=== PATIENT | male | born 1995 | race African-American/Black ===

== ENCOUNTER 2016-09-08 19:56 | Emergency (ER) | payer MEDICAID ==
[~2016-09-08] VITALS: Ht 172.7 cm; Wt 61.7 kg
[2016-09-08 20:16] VITALS: BP 127/82
[2016-09-08] MEDS ORDERED: ADULT WAL-100 MG/5 M ORAL (20:28)
[2016-09-08 20:35] VITALS: BP 127/82
--- NOTE | 2016-09-08 23:35 | Emergency Room Report ---
History of Present Illness General Chief Complaint: Upper Respiratory Illness Source: Patient Present Illness HPI Patient is a 21-year-old male who presented after increased cough. Patient gradual onset of symptoms over the past 2 weeks. Patient having a nonproductive cough which I reportedly had been bothersome. Patient stated that he is not having any fever. Patient denied any leg pain or swelling. The patient was taking ibuprofen [id number] he was noted to have some soreness of his throat. Allergies: Coded Allergies: No Known Allergies (Unverified , 03/19/13) Patient History Past Medical History: see triage record Reviewed Nursing Documentation: PMH: Agreed, PSxH: Agreed Nursing Documentation-PM Past Medical History: No Stated History Review of Systems All Other Systems: negative except mentioned in HPI Physical Exam Vital Signs Date Time Temp Pulse Resp B/P Pulse Ox O2 Delivery O2 Flow Rate FiO2 09/08/16 20:12 97.5 80 14 127/82 99 Room Air General Appearance: well appearing, no apparent distress, alert, GCS 15 Head: normocephalic, atraumatic ENT: hearing grossly normal, normal voice, other - mild pharyngeal erythema Neck: full range of motion, supple Respiratory: lungs clear, normal breath sounds, no rhonchi, no respiratory distress, speaking full sentences Gastrointestinal: normal inspection, normal bowel sounds, non tender, soft, no mass Musculoskeletal: normal inspection, no calf tenderness Neurologic: normal inspection, alert, oriented x3, responsive, casualty underwriter III-XII nml as tested, normal gait Psychiatric: mood/affect normal Skin: no rash Medical Decision Making Diagnostic Impression: Primary Impression: Upper respiratory infection ER Course Patient presented for cough. Differential diagnosis included but was not limited to bronchitis, upper respiratory infection , pneumonia, pulmonary embolism, pericarditis, asthma, foreign body. Patient's benign exam and does not appear to require any further imaging or laboratory testing at this time. The patient was noted to have an unremarkable exam and had no coughing during the time that he was present emergency department.The patient does not appear to have respecter for pulmonary embolism. He appears to be somewhat intent on obtaining cough syrup. He was given prescription for guaifenesin. The patient is advised to follow up with primary care doctor in 1-2 days. Patient is advised to return if any worsening condition or if any changes in status that are concerning. Last Vital Signs Date Time Temp Pulse Resp B/P Pulse Ox O2 Delivery O2 Flow Rate FiO2 09/08/16 20:35 97.5 80 14 127/82 99 Room Air Status: unchanged Disposition: HOME, SELF-CARE Condition: Stable Scripts Guaifenesin* (ADULT WAL-TUSSIN*) 100 Mg/5 Ml Liquid 10 ML ORAL Q4H, #120 ML Prov: Dom Alberto 09/08/16 Referrals: NON PHYSICIAN (PCP) Patient Instructions: Upper Respiratory Infection, Adult Dom Alberto Sep 08, 2016 23:35
[2016-09-24] MEDS ORDERED: PROMETHAZINE-C118 M1 ORAL (20:08)
[2016-09-24] MEDS ORDERED: ALBUTEROL SULF8.5 GM INH (20:08)
== END 2016-09-08 20:35 | disposition home or self-care (01) ==
LOC: EMR 20:25
DX: J06.9 Acute upper respiratory infection, unspecified (principal)
CPT/HCPCS: 99283

== ENCOUNTER → 2016-09-24 | Emergency (ER) | payer MEDICAID ==
[~2016-09-24] VITALS: Ht 172.7 cm; Wt 61.2 kg
[~2016-09-24] MED LIST: ADULT WAL-100 MG/5 M ORAL; ALBUTEROL SULF8.5 GM INH; IBUPROFEN400 MG ORAL; NEXAFED30 MG ORAL; PROMETHAZINE-C118 M1 ORAL; PROMETHAZINE-D118 ML ORAL; TESSALON PERLE100 MG ORAL
[2016-09-24 19:29] VITALS: BP 112/68
--- NOTE | 2016-09-24 20:08 | Emergency Room Report ---
History of Present Illness General Chief Complaint: Upper Respiratory Illness Source: Patient Present Illness HPI 21-year-old male presents to emergency Department complaining of a dry nonproductive cough for over 2 weeks. Patient states he was seen here in the emergency department and was prescribed Robitussin which provided no relief. Patient denies fevers or chills patient denies nasal congestion or rhinorrhea. Patient reports history of asthma and states that at times he's noticed some wheezing after coughing. denies neck pain or stiffness. The patient denies significant shortness of breath. Patient denies recent travel, ill contacts or history of DVT or claudication . Denies CP, Palpitations, LOC, AMS, dizziness, Changes in Vision, Sensation, paresthesias, or a sudden severe headache. Allergies: Coded Allergies: No Known Allergies (Unverified , 03/19/13) Patient History Past Medical History: see triage record Past Surgical History: none Pertinent Family History: none Immunizations: UTD Reviewed Nursing Documentation: PMH: Agreed, PSxH: Agreed Nursing Documentation-PMH Past Medical History: No History, Except For Hx Asthma: Yes Review of Systems All Other Systems: negative except mentioned in HPI Physical Exam Vital Signs Date Time Temp Pulse Resp B/P Pulse Ox O2 Delivery O2 Flow Rate FiO2 09/24/16 19:25 98.4 99 16 112/68 99 Room Air Sp02 EP Interpretation: reviewed, normal General Appearance: no apparent distress, alert, GCS 15, non-toxic Head: normocephalic, atraumatic Eyes: bilateral eye PERRL, bilateral eye normal inspection ENT: hearing grossly normal, normal pharynx, no angioedema, normal voice Neck: full range of motion, no meningismus, no bony tend, supple/symm/no masses Respiratory: chest non-tender, lungs clear, normal breath sounds, no rhonchi, no accessory muscle use, no wheezing, speaking full sentences Cardiovascular #1: regular rate, rhythm, no edema Rectal: deferred Musculoskeletal: back normal, gait/station normal, normal range of motion, non- tender, no calf tenderness Neurologic: alert, oriented x3, responsive, motor strength/tone normal, sensory intact, speech normal Psychiatric: judgement/insight normal, memory normal, mood/affect normal, no suicidal/homicidal ideation Skin: normal color, no rash, warm/dry, well hydrated Lymphatic: no adenopathy Medical Decision Making PA Attestation Dr. Evans is my supervising Physician whom patient management has been discussed with. Diagnostic Impression: Primary Impression: Bronchitis, acute Qualified Codes: J20.9 - Acute bronchitis, unspecified Additional Impression: History of asthma ER Course 21-year-old male presents to emergency Department complaining of a dry nonproductive cough for over 2 weeks. Patient states he was seen here in the emergency department and was prescribed Robitussin which provided no relief. Patient denies fevers or chills patient denies nasal congestion or rhinorrhea. Patient reports history of asthma and states that at times he's noticed some wheezing after coughing. . Ddx considered but are not limited to URI, pneumonia, PE, strep pharyngitis, meningitis. Vital signs: Pt.is afebrile VS are WNL, pt non-toxic, NAD. H&PE are most consistent with bronchitis, most likely of viral in etiology, no fevers, not suspicious for atypical pneumonia at this time. dry non-productive cough in pt. with hx of asthma. ORDERS: none required at this time, the diagnosis is clinical ED INTERVENTIONS: None required at this time. DISCHARGE: At this time pt. is stable for d/c to home. Will provide printed patient care instructions, and any necessary prescriptions. Care plan and follow up instructions have been discussed with the patient prior to discharge. Last Vital Signs Date Time Temp Pulse Resp B/P Pulse Ox O2 Delivery O2 Flow Rate FiO2 09/24/16 19:29 99 16 Room Air 09/24/16 19:29 98.4 112/68 99 Disposition: HOME, SELF-CARE Condition: Stable Patient Instructions: Acute Bronchitis, [id number] Additional Instructions: Take medications as directed. Follow up with PCP in 3-5 days Return sooner to ED if new symptoms occur, or current symptoms become worse. Do not drink alcohol, drive, or operate heavy machinery while taking Cough Syrup as this may cause drowsiness. - Please note that this Emergency Department Report was dictated using [employer] seat sander technology software, occasionally this can lead to erroneous entry secondary to interpretation by the dictation equipment. Estefanía Fernandez Sep 24, 2016 20:08
[2016-09-24 20:13] VITALS: BP 112/68
== END | disposition home or self-care (01) ==
LOC: EMR 19:54
DX: J20.9 Acute bronchitis, unspecified (principal); Z87.09 Personal history of other diseases of the respiratory system
CPT/HCPCS: 99281

== ENCOUNTER 2016-10-02 13:53 | Emergency (ER) | payer MEDICAID ==
[~2016-10-02] VITALS: Ht 172.7 cm; Wt 61.2 kg
[~2016-10-02 13:53] MED LIST changes: -IBUPROFEN400 MG ORAL; -NEXAFED30 MG ORAL; -PROMETHAZINE-D118 ML ORAL; -TESSALON PERLE100 MG ORAL
[2016-10-02 14:22] VITALS: BP 121/75
--- NOTE | 2016-10-02 15:23 | Emergency Room Report ---
History of Present Illness General Chief Complaint: Upper Respiratory Illness Source: Patient Present Illness HPI 21-year-old male presents emergency department complaining of persistent cough x2 months unresponsive to conservative treatment, and antibiotic treatment. Patient was seen here in the emergency department 2 previous visits. Patient also was prescribed inhaler for which has a history of asthma denies wheezing. he reports nasal congestion and rhinorrhea and persistent dry cough. he states that he has not followed up with his doctor despite previous discharge instructions stating followup in 3-5 days. he denies fevers or chills patient denies ill contacts or recent travel patient reports intermittent bilateral upper back pain 5/10 in severity with coughing. Denies CP, Palpitations, LOC, AMS, dizziness, Changes in Vision, Sensation, paresthesias, or a sudden severe headache. Allergies: Coded Allergies: No Known Allergies (Unverified , 03/19/13) Patient History Past Medical History: see triage record Past Surgical History: none Pertinent Family History: none Immunizations: UTD Reviewed Nursing Documentation: PMH: Agreed, PSxH: Agreed Nursing Documentation-PMH Past Medical History: No History, Except For Hx Asthma: Yes Review of Systems All Other Systems: negative except mentioned in HPI Physical Exam Vital Signs Date Time Temp Pulse Resp B/P Pulse Ox O2 Delivery O2 Flow Rate FiO2 10/02/16 14:22 98.1 71 16 121/75 98 Room Air Sp02 EP Interpretation: reviewed, normal General Appearance: no apparent distress, alert, GCS 15, non-toxic Head: normocephalic, atraumatic Eyes: bilateral eye PERRL, bilateral eye normal inspection ENT: hearing grossly normal, normal pharynx, no angioedema, normal voice, TMs + canals normal, uvula midline, moist mucus membranes Neck: full range of motion, supple/symm/no masses Respiratory: chest non-tender, lungs clear, normal breath sounds, speaking full sentences Cardiovascular #1: regular rate, rhythm, no edema Cardiovascular #2: 2+ carotid (R), 2+ carotid (L), 2+ radial (R), 2+ radial (L) , 2+ dorsalis pedis (R), 2+ dorsalis pedis (L) Gastrointestinal: normal bowel sounds, non tender, soft, no guarding, no rebound Rectal: deferred Genitourinary: normal inspection, no CVA tenderness Musculoskeletal: back normal, gait/station normal, normal range of motion, non- tender, no calf tenderness Neurologic: alert, oriented x3, responsive, motor strength/tone normal, sensory intact, speech normal Psychiatric: judgement/insight normal, memory normal, mood/affect normal, no suicidal/homicidal ideation Reflexes: 4+ bicep (R), 4+ bicep (L), 4+ tricep (R), 4+ tricep (L), 4+ knee (R) , 4+ knee (L) Skin: normal color, no rash, warm/dry, well hydrated Lymphatic: no adenopathy Medical Decision Making PA Attestation Dr. Bermudez is my supervising Physician whom patient management has been discussed with. Diagnostic Impression: Primary Impression: Persistent cough for 3 weeks or longer ER Course 21-year-old male presents emergency department complaining of persistent cough x2 months unresponsive to conservative treatment, and antibiotic treatment. Patient was seen here in the emergency department 2 previous visits. Patient also was prescribed inhaler for which has a history of asthma denies wheezing. he reports nasal congestion and rhinorrhea and persistent dry cough. he states that he has not followed up with his doctor despite previous discharge instructions stating followup in 3-5 days. he denies fevers or chills patient denies ill contacts or recent travel patient reports intermittent bilateral upper back pain 5/10 in severity with coughing. Ddx considered but are not limited to URI, pneumonia, PE, strep pharyngitis, meningitis. Vital signs: Pt. is afebrile, the remaining VS are WNL H&PE are most consistent with URI- no meningeal signs, oropharynx is not involved, no evidence of bacterial infection at this time. pt. has finished both Z-pack and conservative treatment, lungs are CTA bilaterally. ORDERS: none required at this time, the diagnosis is clinical ED INTERVENTIONS: None required at this time. --PT. EDUCATION: Discussed antibiotic resistance with inappropriate prescribing of antibiotics for viral illnesses. Discussed signs and symptoms to indicate viral illness versus bacterial illness. also d/w pt. appropriate follow up with PCP, and may require back tender insulation board evaluation. pt. is stable for outpatient evaluation and treatment. DISCHARGE: At this time pt. is stable for d/c to home. Will provide printed patient care instructions, and any necessary prescriptions. Care plan and follow up instructions have been discussed with the patient prior to discharge. Last Vital Signs Date Time Temp Pulse Resp B/P Pulse Ox O2 Delivery O2 Flow Rate FiO2 10/02/16 14:26 71 16 Room Air 10/02/16 14:22 98.1 121/75 98 Disposition: HOME, SELF-CARE Scripts Ibuprofen* (MOTRIN*) 400 Mg Tablet 400 MG ORAL THREE TIMES A DAY, #30 TAB 0 Refills Prov: Estefanía Fernandez 10/02/16 Pseudoephedrine Hcl* (NEXAFED*) 30 Mg Tablet 30 MG ORAL Q6H Y for congestion for 5 Days, #20 TAB Prov: Estefanía FernandezAJuan Daniel 10/02/16 D-Methorphan Hb/Prometh Hcl* (PROMETHAZINE-DM SYRUP*) 118 Ml Syrup 5 ML ORAL Q6H Y for For Cough, #118 ML 0 Refills Prov: Estefanaí Fernandez 10/02/16 Benzonatate* (TESSALON PERLE*) 100 Mg Capsule 100 MG ORAL THREE TIMES A DAY for 7 Days, #21 PERLE Prov: Estefanía Fernandez 10/02/16 Referrals: NON PHYSICIAN (PCP) Patient Instructions: Cough, Adult, [id number] Additional Instructions: Take medications as directed. !! Follow up with PCP in 3-5 days , May require [employer] evaluation for persistent cough despite treatment with antibiotics and conservative medications. Return sooner to ED if new symptoms occur, or current symptoms become worse. - Please note that this Emergency Department Report was dictated using [employer] service professional technology software, occasionally this can lead to erroneous entry secondary to interpretation by the dictation equipment. Estefanía Fernandez Oct 02, 2016 15:23
[2016-10-02] MEDS ORDERED: IBUPROFEN400 MG ORAL (15:25)
[2016-10-02] MEDS ORDERED: PROMETHAZINE-D118 ML ORAL (15:25)
[2016-10-02] MEDS ORDERED: TESSALON PERLE100 MG ORAL (15:25)
[2016-10-02] MEDS ORDERED: NEXAFED30 MG ORAL (15:25)
[2016-10-02 15:54] VITALS: BP 127/76
== END 2016-10-02 15:55 | disposition home or self-care (01) ==
LOC: EMR 14:46
DX: R05 Cough (principal); J45.909 Unspecified asthma, uncomplicated
CPT/HCPCS: 99284

== ENCOUNTER 2016-12-09 17:23 | Emergency (ER) | payer MEDICAID ==
[~2016-12-09] VITALS: Ht 172.7 cm; Wt 63.5 kg
[~2016-12-09 17:23] MED LIST changes: +IBUPROFEN400 MG ORAL; +NEXAFED30 MG ORAL; +PROMETHAZINE-D118 ML ORAL; +TESSALON PERLE100 MG ORAL
[2016-12-09 17:31] VITALS: BP 148/85
[2016-12-09] MEDS ORDERED: AMOXICILLIN500 MG ORAL (17:49)
[2016-12-09] MEDS ORDERED: TESSALON PERLE100 MG ORAL (17:49)
[2016-12-09] MEDS ORDERED: DEBROX15 M1 RIGHT EAR (17:49)
--- NOTE | 2016-12-09 21:32 | Emergency Room Report ---
History of Present Illness General Chief Complaint: Upper Respiratory Illness Source: Patient Present Illness [facility] The patient is a 21-year-old female with a history of asthma presenting for dry cough and subjective fever for the past 2 weeks. He has tried albuterol which does not help. He denies any sick contacts or recent travel. Pain is described as a 5/10 dull ache to the back of the throat and does not radiate. Pain worse with coughing. He denies any other symptoms including headache, dizziness, neck pain or stiffness, rash, shortness of breath Allergies: Coded Allergies: No Known Allergies (Unverified , 03/19/13) Patient History Past Medical History: see triage record Pertinent Family History: none Reviewed Nursing Documentation: PMH: Agreed, PSxH: Agreed Nursing Documentation-PMH Past Medical History: No History, Except For Hx Asthma: Yes Review of Systems All Other Systems: negative except mentioned in HPI Physical Exam Vital Signs Date Time Temp Pulse Resp B/P Pulse Ox O2 Delivery O2 Flow Rate FiO2 12/09/16 17:31 98.1 80 18 148/85 98 Room Air Sp02 EP Interpretation: reviewed, normal General Appearance: no apparent distress, alert, GCS 15, non-toxic Head: normocephalic, atraumatic Eyes: bilateral eye PERRL, bilateral eye normal inspection ENT: uvula midline, tonsillar swelling, pharyngeal erythema, other - R ear cerumen impaction Neck: full range of motion, supple/symm/no masses Respiratory: chest non-tender, lungs clear, normal breath sounds, speaking full sentences Cardiovascular #1: regular rate, rhythm, no edema Musculoskeletal: back normal, gait/station normal, normal range of motion, non- tender Neurologic: alert, oriented x3, responsive, motor strength/tone normal, sensory intact, speech normal Psychiatric: judgement/insight normal, memory normal, mood/affect normal, no suicidal/homicidal ideation Skin: normal color, no rash, warm/dry, well hydrated Lymphatic: adenopathy Medical Decision Making PA Attestation Dr. Hodge is my supervising physician. Patient management was discussed with my supervising physician Diagnostic Impression: Primary Impression: Cerumen impaction Qualified Codes: H61.21 - Impacted cerumen, right ear Additional Impression: Pharyngitis, acute Qualified Codes: J02.9 - Acute pharyngitis, unspecified ER Course The patient is a 21-year-old female with a history of asthma presenting for dry cough and subjective fever for the past 2 weeks. Differential diagnosis include but not limited to pharyngitis, sinusitis, AOM, bronchitis, PNA Physical exam: Vitals within normal limits. Afebrile. No apparent distress HEENT exam: There is bilateral tonsillar edema, erythema. Uvula midline. Moist mucous membranes. R ear cerumen impaction There is bilateral cervical lymphadenopathy. Lungs are clear to auscultation bilaterally Skin is warm and dry. No rash The patient will be discharged home with a prescription for amoxicillin and is given ER precautions. Patient will followup with primary care Last Vital Signs Date Time Temp Pulse Resp B/P Pulse Ox O2 Delivery O2 Flow Rate FiO2 12/09/16 17:58 98.1 80 18 148/85 98 Room Air Status: improved Disposition: HOME, SELF-CARE Condition: Improved Scripts Benzonatate* (TESSALON PERLE*) 100 Mg Capsule 100 MG ORAL THREE TIMES A DAY, #15 PERLE Prov: SALBADOR RM.A. 12/09/16 Carbamide Peroxide (DEBROX) 15 Ml Drops 10 DROP RIGHT EAR TWICE A DAY for 4 Days, ML 0 Refills Prov: SALBADOR RM P.A. 12/09/16 Amoxicillin* (AMOXIL*) 500 Mg Capsule 500 MG ORAL Q12HR, #20 CAP Prov: SALBADOR RM P.A. 12/09/16 Referrals: [facility],REF (PCP) Patient Instructions: Cerumen Impaction, Upper Respiratory Infection, Adult Additional Instructions: I discussed my findings with the patient. All questions and concerns have been answered. Treatment and medication compliance have been addressed. I advised the patient that they need to follow up with PMD in 3-5 days. Return to ED if pain remains or worsens, cough worsens or remains, you notice blood in your sputum, you notice wheezing, you experience a fever, or if needed for any reason. Patient verbalized understanding of discharge instructions. SALBADOR RM December 09, 2016 21:32
== END 2016-12-09 17:59 | disposition home or self-care (01) ==
LOC: EMR 17:55
DX: H61.21 Impacted cerumen, right ear (principal); J02.9 Acute pharyngitis, unspecified; J45.909 Unspecified asthma, uncomplicated
CPT/HCPCS: 99284

== ENCOUNTER 2017-01-10 17:25 | Emergency (ER) | payer MEDICAID ==
[~2017-01-10] VITALS: Ht 172.7 cm; Wt 61.7 kg
[~2017-01-10 17:25] MED LIST changes: +AMOXICILLIN500 MG ORAL; +DEBROX15 M1 RIGHT EAR
[2017-01-10 18:10] VITALS: BP 112/64
[2017-01-10] MEDS ORDERED: IBUPROFEN600 MG ORAL (18:26)
[2017-01-10 18:35] VITALS: BP 112/64
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
== END 2017-01-10 18:35 | disposition home or self-care (01) ==
LOC: EMR 17:49
DX: M79.604 Pain in right leg (principal); V89.2XXA Person injured in unspecified motor-vehicle accident, traffic, initial encounter; Y93.9 Activity, unspecified; Y99.9 Unspecified external cause status; J45.909 Unspecified asthma, uncomplicated
CPT/HCPCS: 99283

== ENCOUNTER 2017-01-16 00:34 | Emergency (ER) | payer MEDICAID ==
[~2017-01-16] VITALS: Ht 172.7 cm; Wt 61.7 kg
[~2017-01-16 00:34] MED LIST changes: +IBUPROFEN600 MG ORAL
[2017-01-16 00:50] VITALS: BP 134/76
[2017-01-16] MEDS ORDERED: ROBAXIN-750750 MG PO (01:23)
[2017-01-16] MEDS ORDERED: Ketorolac 60mg Inj IM ONE (01:30)
[2017-01-16 02:50] VITALS: BP 129/71
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
== END 2017-01-16 02:50 | disposition home or self-care (01) ==
LOC: EMR 01:40
DX: M79.604 Pain in right leg (principal); J45.909 Unspecified asthma, uncomplicated
CPT/HCPCS: 96372; 99283

== ENCOUNTER 2017-01-24 03:06 | Emergency (ER) | payer MEDICAID ==
[~2017-01-24] VITALS: Ht 172.7 cm; Wt 62.6 kg
[~2017-01-24 03:06] MED LIST changes: +ROBAXIN-750750 MG PO
[2017-01-24] MEDS ORDERED: Tylenol #3 tab (300mg/30mg) PO ONE (03:45)
[2017-01-24] MEDS ORDERED: ACETAMINOPHEN-1 EAC1 ORAL (04:23)
[2017-01-24 04:50] VITALS: BP 129/76
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
== END 2017-01-24 04:56 | disposition home or self-care (01) ==
LOC: EMR 03:38
DX: S89.91XD Unspecified injury of right lower leg, subsequent encounter (principal); V49.9XXD Car occupant (driver) (passenger) injured in unspecified traffic accident, subsequent encounter
CPT/HCPCS: 99284

== ENCOUNTER 2017-01-31 19:55 | Emergency (ER) | payer MEDICAID ==
[~2017-01-31] VITALS: Ht 172.7 cm; Wt 63.5 kg
[~2017-01-31 19:55] MED LIST changes: +ACETAMINOPHEN-1 EAC1 ORAL
[2017-01-31 20:33] VITALS: BP 130/76
[2017-01-31] MEDS ORDERED: DEBROX15 M1 RIGHT EAR (20:46)
[2017-01-31] MEDS ORDERED: CORTISPORIN EAR10 ML RIGHT EAR (20:46)
[2017-01-31] MEDS ORDERED: Lidocaine 2% Visc 15ml soln ORAL ONE (21:00)
[2017-01-31 21:07] VITALS: BP 130/76
--- NOTE | 2017-01-31 21:53 | Emergency Room Report ---
History of Present Illness General Chief Complaint: Earache Source: Patient Present Illness HPI Patient is a 22-year-old male presented after increased right earache. Patient gradual onset of symptoms of the past one day. Patient had reported having increased difficulty with hearing. Patient recently been prescribed eardrops. The patient stated he had not been using Q-tips. He had denied any fever or sore throat Allergies: Coded Allergies: No Known Allergies (Unverified , 01/16/17) Patient History Past Medical History: see triage record Reviewed Nursing Documentation: PMH: Agreed, PSxH: Agreed Nursing Documentation-PMH Past Medical History: No Stated History Hx Asthma: Yes Review of Systems All Other Systems: negative except mentioned in HPI Physical Exam Vital Signs Date Time Temp Pulse Resp B/P Pulse Ox O2 Delivery O2 Flow Rate FiO2 01/31/17 20:12 98.1 76 14 130/76 97 Room Air General Appearance: well appearing, no apparent distress, alert, GCS 15 Head: normocephalic, atraumatic ENT: hearing grossly normal, normal voice, uvula midline, moist mucus membranes , other - right ear with large amount of dark cerumen Neck: full range of motion, supple Respiratory: no respiratory distress, speaking full sentences Cardiovascular #1: normal inspection Musculoskeletal: no calf tenderness Neurologic: normal gait Psychiatric: mood/affect normal Skin: no rash Medical Decision Making Diagnostic Impression: Primary Impression: Cerumen impaction Additional Impression: External otitis of right ear ER Course Patient presented for ear pain. Differential diagnosis included was not limited to otitis media, malignant otitis externa, foreign body, cellulitis, mastoiditis, carotid dissection, myocardial infarction among others. Patient' s benign exam and does not appear to require any further imaging or laboratory testing at this time. I do to remove some wax in the patient's right ear with a subsequent right ear canal abrasion. There is no evidence of perforation. The patient was given prescription for ear drops. He is advised followup with his primary care physician for further evaluation in the next 2-3 days. Last Vital Signs Date Time Temp Pulse Resp B/P Pulse Ox O2 Delivery O2 Flow Rate FiO2 01/31/17 21:07 98.1 14 130/76 97 Room Air 01/31/17 20:12 76 Status: improved Disposition: HOME, SELF-CARE Condition: Stable Scripts Neomycin/Polymyxin B Sulf/Hc* (CORTISPORIN EAR SOLUTION*) 10 Ml Solution 4 DROP RIGHT EAR QID, #10 ML 0 Refills Prov: Dom Alberto 01/31/17 Carbamide Peroxide (DEBROX) 15 Ml Drops 5 DROP RIGHT EAR TWICE A DAY for 4 Days, ML 0 Refills Prov: Dom Alberto 01/31/17 Patient Instructions: Otitis Externa, [id number] Dom Alberto Jan 31, 2017 21:52
== END 2017-01-31 21:07 | disposition home or self-care (01) ==
LOC: EMR 20:25
DX: H61.21 Impacted cerumen, right ear (principal); H60.91 Unspecified otitis externa, right ear; J45.909 Unspecified asthma, uncomplicated
CPT/HCPCS: 99284

== ENCOUNTER 2017-04-08 19:36 | Emergency (ER) | payer MEDICAID ==
[~2017-04-08] VITALS: Ht 172.7 cm; Wt 80.7 kg
[~2017-04-08 19:36] MED LIST changes: +CORTISPORIN EAR10 ML RIGHT EAR
[2017-04-08 19:45] VITALS: BP 126/87
[2017-04-08] MEDS ORDERED: PROMETHAZI6.25 MG/1 ORAL (20:22)
[2017-04-08] MEDS ORDERED: CORTISPORIN EAR10 ML RIGHT EAR (20:22)
[2017-04-08] MEDS ORDERED: DEBROX15 M1 BOTH EARS (20:22)
[2017-04-08] MEDS ORDERED: PREDNISONE20 MG ORAL (20:22)
[2017-04-08 20:31] VITALS: BP 126/87
--- NOTE | 2017-04-08 22:39 | Emergency Room Report ---
History of Present Illness General Chief Complaint: Flu Like Symptoms Source: Patient Present Illness HPI The patient is a 22-year-old male presenting for right ear pain which began 2 weeks prior. He admits to cleaning out his years constantly. Pain is described as an 8/10 dull ache and does not radiate from the ear. Worse with touch. He denies any changes in hearing. He denies any fever or chills. He also admits to productive cough and sore throat which began last week. He denies any known sick contacts or recent travel Allergies: Coded Allergies: No Known Allergies (Unverified , 01/16/17) Patient History Past Medical History: see triage record Pertinent Family History: none Reviewed Nursing Documentation: PMH: Agreed, PSxH: Agreed Nursing Documentation-PMH Past Medical History: No Stated History Hx Asthma: Yes Review of Systems All Other Systems: negative except mentioned in HPI Physical Exam Vital Signs Date Time Temp Pulse Resp B/P (MAP) Pulse Ox O2 Delivery O2 Flow Rate FiO2 04/08/17 19:43 97.9 72 20 126/87 99 Room Air Sp02 EP Interpretation: reviewed, normal General Appearance: no apparent distress, alert, GCS 15, non-toxic Head: normocephalic, atraumatic Eyes: bilateral eye normal inspection, bilateral eye PERRL ENT: normal pharynx, normal voice, uvula midline, other - TTP over the R tragus Neck: full range of motion, supple/symm/no masses Respiratory: chest non-tender, lungs clear, normal breath sounds, speaking full sentences Cardiovascular #1: regular rate, rhythm, no edema Musculoskeletal: back normal, gait/station normal, normal range of motion, calf tenderness Neurologic: alert, oriented x3, responsive, motor strength/tone normal, sensory intact, speech normal Psychiatric: judgement/insight normal, memory normal, mood/affect normal, no suicidal/homicidal ideation Skin: normal color, no rash, warm/dry, well hydrated Medical Decision Making PA Attestation Dr. Yang is my supervising physician. Patient management was discussed with my supervising physician Diagnostic Impression: Primary Impression: Pharyngitis, acute Qualified Codes: J02.9 - Acute pharyngitis, unspecified Additional Impression: Otitis externa, acute Qualified Codes: H60.501 - Unspecified acute noninfective otitis externa, right ear ER Course The patient is a 22-year-old male presenting for right ear pain and URI symptoms Differential diagnosis include but not limited to pharyngitis, sinusitis, AOM, Otitis externa, bronchitis, PNA Physical exam: Vitals within normal limits. Afebrile. No apparent distress HEENT exam: There is pharyngeal erythema. No tonsillar edema or exudate. Uvula midline. Moist mucous membranes. R EAC is edematous. TTP. There is no cervical lymphadenopathy. Lungs are clear to auscultation bilaterally Skin is warm and dry. No rash The patient will be discharged home with a prescription for Cortisporin, cough medication, prednisone. Patient will followup with primary care Last Vital Signs Date Time Temp Pulse Resp B/P (MAP) Pulse Ox O2 Delivery O2 Flow Rate FiO2 04/08/17 20:31 78 16 126/87 99 Room Air 04/08/17 19:43 97.9 Status: improved Disposition: HOME, SELF-CARE Condition: Improved Scripts Carbamide Peroxide (DEBROX) 15 Ml Drops 5 DROP BOTH EARS TWICE A DAY for 4 Days, ML 0 Refills Prov: TERZIANSARAHIY P.A. 04/08/17 Promethazine Hcl (PROMETHAZINE HCL*) 6.25 Mg/5 Ml Syrup 5 ML ORAL Q8H, #120 ML 0 Refills Prov: TERZIAN,SALBADOR P.A. 04/08/17 Prednisone* (PREDNISONE*) 20 Mg Tablet 40 MG ORAL DAILY, #10 TAB Prov: TERZIAN,SALBADOR P.A. 04/08/17 Neomycin/Polymyxin B Sulf/Hc* (CORTISPORIN EAR SOLUTION*) 10 Ml Solution 4 DROP RIGHT EAR QID, #10 ML 0 Refills Prov: TERZIAN,SALBADOR P.A. 04/08/17 Referrals: [facility],REF (PCP) Patient Instructions: Otitis Externa, Pharyngitis Additional Instructions: I discussed my findings with the patient. All questions and concerns have been answered. Treatment and medication compliance have been addressed. I advised the patient that they need to follow up with PMD in 3-5 days. Return to ED if pain remains or worsens, cough worsens or remains, you notice blood in your sputum, you notice wheezing, you experience a fever, or if needed for any reason. Patient verbalized understanding of discharge instructions. SALBADOR RM Apr 08, 2017 22:39
== END 2017-04-08 20:30 | disposition home or self-care (01) ==
LOC: EMR 20:30
DX: J02.9 Acute pharyngitis, unspecified (principal); H60.91 Unspecified otitis externa, right ear; J45.909 Unspecified asthma, uncomplicated
CPT/HCPCS: 99284

== ENCOUNTER 2017-04-15 03:21 | Emergency (ER) | payer MEDICAID ==
[~2017-04-15] VITALS: Ht 172.7 cm; Wt 79.4 kg
[~2017-04-15 03:21] MED LIST changes: +DEBROX15 M1 BOTH EARS; +PREDNISONE20 MG ORAL; +PROMETHAZI6.25 MG/1 ORAL
[2017-04-15 03:49] VITALS: BP 149/74
[2017-04-15] MEDS ORDERED: BACTRIM DS TAB1 EAC1 ORAL (04:05)
--- NOTE | 2017-04-15 04:06 | Emergency Room Report ---
History of Present Illness General Chief Complaint: Generalized Weakness Source: Patient Present Illness HPI Is a 22-year-old male with no significant past medical history. He presents with a spider bite to the right leg. Onset for last couple days. Increasing pain and redness. No drainage. No fever chills. Pain is 5/10. Denies any other complaint. Never had this problem before Allergies: Coded Allergies: No Known Allergies (Unverified , 01/16/17) Patient History Past Medical History: see triage record, old chart reviewed Past Surgical History: none Pertinent Family History: none Social History: Denies: smoking Immunizations: other Reviewed Nursing Documentation: PMH: Agreed, PSxH: Agreed Nursing Documentation-PMH Hx Asthma: Yes Review of Systems Eye: Denies: eye pain, blurred vision ENT: Denies: ear pain, nose congestion, throat swelling Respiratory: Denies: cough, shortness of breath Cardiovascular: Denies: chest pain, palpitations Gastrointestinal: Denies: abdominal pain, diarrhea, nausea, vomiting Musculoskeletal: Denies: back pain, joint pain Skin: Denies: rash Neurological: Denies: headache, numbness Endocrine: Denies: increased thirst, increased urine Hematologic/Lymphatic: Denies: easy bruising All Other Systems: negative except mentioned in HPI Physical Exam Vital Signs Date Time Temp Pulse Resp B/P (MAP) Pulse Ox O2 Delivery O2 Flow Rate FiO2 04/15/17 03:40 97.3 75 18 149/74 98 Room Air vitals normal Sp02 EP Interpretation: reviewed, normal General Appearance: well appearing, no apparent distress, alert Head: normocephalic, atraumatic Eyes: bilateral eye PERRL, bilateral eye EOMI ENT: hearing grossly normal, normal pharynx Neck: full range of motion, supple, no meningismus Respiratory: chest non-tender, lungs clear, normal breath sounds Cardiovascular #1: regular rate, rhythm, no murmur Gastrointestinal: normal bowel sounds, non tender, no mass, no organomegaly, no bruit, non-distended Musculoskeletal: back normal, gait/station normal, normal range of motion, other - Right lower leg: There is an indurated area of 1 cm with central necrosis. There is a 2 cm erythema surrounding. No drainage. Psychiatric: mood/affect normal Skin: warm/dry Procedures Incision and Drainage Incision and Drainage : Consent: Verbal Site: Right lower leg Blade Size: 11 I & D Procedure: betadine prep, sterile drapes applied Wound Location: lower extremity Anesthesia: 1% Lidocaine Volume Anesthetic (ccs): 2 Patient Tolerated: Well Complications: None Progress area clean with Betadine. Local anesthetic with 1% lidocaine. I made a 1 cm incision and there was small amount of pus expressed. loculated areabroken up. Patient tolerated seizure without problem. Medical Decision Making Diagnostic Impression: Primary Impression: Abscess of right lower leg ER Course Vision with cellulitis and abscess of the lower extremity. No deep infection. Most likely MRSA. No necrotizing fasciitis. We'll discharge home. Last Vital Signs Date Time Temp Pulse Resp B/P (MAP) Pulse Ox O2 Delivery O2 Flow Rate FiO2 04/15/17 03:49 97.3 75 18 149/74 98 Room Air Status: improved Disposition: HOME, SELF-CARE Condition: Stable Scripts Trimethoprim/Sulfamethoxazole 160/800* (BACTRIM DS TABLET*) 1 Each Tablet 1 TAB ORAL Q12H, #14 TAB 0 Refills Prov: MIHIR OATES M.D. 04/15/17 Additional Instructions: Keep wound clean. Clean with hydrogen peroxide. Followup with your Dr. in 7 days. Return if worse. MIHIR OATES M.D. Apr 15, 2017 04:06
[2017-04-15 04:11] VITALS: BP 149/74
[2017-04-15] MEDS ORDERED: Bactrim DS (160mg/800mg) tab ORAL ONE (04:15)
== END 2017-04-15 04:11 | disposition home or self-care (01) ==
LOC: EMR 03:36
DX: L02.415 Cutaneous abscess of right lower limb (principal)
CPT/HCPCS: 10060; 99283

== ENCOUNTER 2017-04-25 21:33 | Emergency (ER) | payer MEDICAID ==
[~2017-04-25] VITALS: Ht 172.7 cm; Wt 77.1 kg
[~2017-04-25 21:33] MED LIST changes: +BACTRIM DS TAB1 EAC1 ORAL
[2017-04-25] MEDS ORDERED: ALBUTEROL SULF8.5 GM INH (21:56)
[2017-04-25 22:00] VITALS: BP 128/78
[2017-04-25] MEDS ORDERED: FLONASE SENSIM9.9 ML NS (22:32)
[2017-04-25] MEDS ORDERED: CLARITIN10 MG ORAL (22:32)
--- NOTE | 2017-04-25 22:33 | Emergency Room Report ---
History of Present Illness General Chief Complaint: Upper Respiratory Illness Source: Patient Present Illness HPI Is a 22-year-old male with no significant past medical history. He presents with chief complaint of congestion to his nose and slight cough the last month. Been on antibiotics not helping. No fever chills but no nausea no vomiting. No sore throat. No known allergies. Worse with lying flat. Allergies: Coded Allergies: No Known Allergies (Unverified , 01/16/17) Patient History Past Medical History: see triage record, old chart reviewed Past Surgical History: other Pertinent Family History: none Social History: Denies: smoking Immunizations: other Reviewed Nursing Documentation: PMH: Agreed, PSxH: Agreed Nursing Documentation-PMH Past Medical History: No History, Except For Hx Asthma: Yes Review of Systems Eye: Denies: eye pain, blurred vision ENT: Reports: nose congestion, Denies: ear pain, throat swelling Respiratory: Denies: cough, shortness of breath Cardiovascular: Denies: chest pain, palpitations Gastrointestinal: Denies: abdominal pain, diarrhea, nausea, vomiting Musculoskeletal: Denies: back pain, joint pain Skin: Denies: rash Neurological: Denies: headache, numbness Endocrine: Denies: increased thirst, increased urine Hematologic/Lymphatic: Denies: easy bruising All Other Systems: negative except mentioned in HPI Physical Exam Vital Signs Date Time Temp Pulse Resp B/P (MAP) Pulse Ox O2 Delivery O2 Flow Rate FiO2 04/25/17 21:52 97.9 77 17 128/78 98 Room Air vitals normal Sp02 EP Interpretation: reviewed, normal General Appearance: well appearing, no apparent distress, alert Head: normocephalic, atraumatic Eyes: bilateral eye PERRL, bilateral eye EOMI ENT: hearing grossly normal, normal pharynx Neck: full range of motion, supple, no meningismus Respiratory: chest non-tender, lungs clear, normal breath sounds Cardiovascular #1: regular rate, rhythm, no murmur Gastrointestinal: normal bowel sounds, non tender, no mass, no organomegaly, no bruit, non-distended Musculoskeletal: back normal, gait/station normal, normal range of motion Psychiatric: mood/affect normal Skin: warm/dry Medical Decision Making Diagnostic Impression: Primary Impression: Rhinitis Qualified Codes: J00 - Acute nasopharyngitis [common cold] ER Course Patient with rhinitis. Probably allergic in nature. No evidence of bacterial infection. We'll discharge home with allergy medication. Last Vital Signs Date Time Temp Pulse Resp B/P (MAP) Pulse Ox O2 Delivery O2 Flow Rate FiO2 04/25/17 22:00 97.9 17 128/78 98 Room Air 04/25/17 22:00 77 Status: improved Disposition: HOME, SELF-CARE Condition: Stable Scripts Loratadine (CLARITIN) 10 Mg Tablet 10 MG ORAL DAILY, #30 TAB Prov: MIHIR OATES M.D. 04/25/17 Fluticasone Furoate (FLONASE SENSIMIST) 9.9 Ml [place].susp 9.9 ML NS BID, #1 UNIT Prov: MIHIR OATES M.D. 04/25/17 Referrals: NON PHYSICIAN (PCP) Additional Instructions: Followup with your DrJuan Daniel in 7 days. Return if symptom worsen. MIHIR OATES M.D. Apr 25, 2017 22:33
[2017-04-25 22:37] VITALS: BP 128/78
== END 2017-04-25 22:37 | disposition home or self-care (01) ==
LOC: EMR 22:17
DX: J31.0 Chronic rhinitis (principal); J45.909 Unspecified asthma, uncomplicated
CPT/HCPCS: 99284

== ENCOUNTER 2017-05-08 22:08 | Emergency (ER) | payer MEDICAID ==
[~2017-05-08 22:08] MED LIST changes: +CLARITIN10 MG ORAL; +FLONASE SENSIM9.9 ML NS
--- NOTE | 2017-05-08 22:28 | Emergency Room Report ---
History of Present Illness General Chief Complaint: To Be Triaged Present Illness Allergies: Coded Allergies: No Known Allergies (Unverified , 01/16/17) Patient History Past Medical History: asthma Nursing Documentation-[facility] Hx Asthma: Yes Medical Decision Making Diagnostic Impression: Primary Impression: LWBSMD ER Course The patient is not present in the emergency department waiting room when the triage nurse went to call him. Status: other Disposition: LEFT W/OUT BEING SEEN Condition: Unknown Rl Caruso M.D. May 08, 2017 22:28
== END 2017-05-08 23:36 | disposition left against medical advice (07) ==
LOC: EMR 22:20
DX: R05 Cough (principal); Z53.21 Procedure and treatment not carried out due to patient leaving prior to being seen by health care provider
CPT/HCPCS: 99281

== ENCOUNTER 2017-05-21 12:52 | Emergency (ER) | payer MEDICAID ==
[~2017-05-21] VITALS: Ht 172.7 cm; Wt 78.0 kg
[2017-05-21 13:02] VITALS: BP 128/82
--- NOTE | 2017-05-21 14:10 | Emergency Room Report ---
History of Present Illness General Chief Complaint: Skin Rash/Abscess Present Illness HPI 22-year-old male presents to the emergency department complaining of 10 out of 10 in severity localized swelling, tenderness, or pain to the right axilla x4 days. Patient believes he is hair. Patient denies fevers, chills, pain radiating into the arm. Patient denies trauma or fall. he reports one previous episode of abscess of the right thigh in the past. denies itching, rashes, abdominal pain. Denies history of immunocompromise. Denies CP, Palpitations, LOC, AMS, dizziness, Changes in Vision, Sensation, paresthesias, or a sudden severe headache. Allergies: Coded Allergies: No Known Allergies (Unverified , 01/16/17) Patient History Past Medical History: see triage record Past Surgical History: none Pertinent Family History: none Immunizations: UTD Reviewed Nursing Documentation: PMH: Agreed, PSxH: Agreed Nursing Documentation-PMH Hx Asthma: Yes Review of Systems All Other Systems: negative except mentioned in HPI Physical Exam Vital Signs Date Time Temp Pulse Resp B/P (MAP) Pulse Ox O2 Delivery O2 Flow Rate FiO2 05/21/17 12:57 98.1 76 20 128/82 99 Room Air Sp02 EP Interpretation: reviewed, normal General Appearance: no apparent distress, alert, GCS 15, non-toxic Head: normocephalic, atraumatic Eyes: bilateral eye normal inspection, bilateral eye PERRL ENT: hearing grossly normal, normal voice Neck: full range of motion Respiratory: lungs clear, normal breath sounds, speaking full sentences Cardiovascular #1: regular rate, rhythm, normal capillary refill Cardiovascular #2: 2+ radial (R), 2+ radial (L) Rectal: deferred Musculoskeletal: back normal, gait/station normal, normal range of motion, non- tender Neurologic: alert, oriented x3, responsive, motor strength/tone normal, sensory intact, speech normal Psychiatric: judgement/insight normal, memory normal, mood/affect normal Skin: normal color, no rash, warm/dry, well hydrated, other - 1cm abscess in the right axilla. Lymphatic: no adenopathy Procedures Incision and Drainage Incision and Drainage : Consent: Verbal Site: right axilla Blade Size: 11 I & D Procedure: betadine prep Wound Location: upper extremity - right axilla Wound's Depth, Shape: superficial Wound Length (cm): 1 Wound Explored: contaminated Irrigated w/ Saline (ccs): 200 Anesthesia: 1% Lidocaine Volume Anesthetic (ccs): 2 Splint Applied?: No Sling Applied?: No Patient Tolerated: Well Complications: None Medical Decision Making PA Attestation Dr. Yang is my supervising Physician whom patient management has been discussed with. Diagnostic Impression: Primary Impression: Abscess ER Course 22-year-old male presents to the emergency department complaining of 10 out of 10 in severity localized swelling, tenderness, or pain to the right axilla x4 days. Patient believes he is hair. Patient denies fevers, chills, pain radiating into the arm. Patient denies trauma or fall. he reports one previous episode of abscess of the right thigh in the past. denies itching, rashes, abdominal pain. Denies history of immunocompromise. Denies CP, Palpitations, LOC, AMS, dizziness, Changes in Vision, Sensation, paresthesias, or a sudden severe headache. Ddx considered but are not limited to cellulitis, abscess, cystic acne, necrotizing fasciitis, insect bite. Vital signs: are WNL, pt. is afebrile H&PE are most consistent with 1 cm abscess in the right axilla. ORDERS: none required at this time, the diagnosis is clinical ED INTERVENTIONS: -I & D. DISCHARGE: At this time pt. is stable for d/c to home. Will provide printed patient care instructions, and any necessary prescriptions. Care plan and follow up instructions have been discussed with the patient prior to discharge. Last Vital Signs Date Time Temp Pulse Resp B/P (MAP) Pulse Ox O2 Delivery O2 Flow Rate FiO2 05/21/17 13:02 98.1 20 128/82 99 Room Air 05/21/17 12:57 76 Disposition: HOME, SELF-CARE Condition: Stable Scripts Bacitracin/Polymyxin B Sulfate (BACITRACIN-POLYMYXIN OINTMENT) 28.35 Gm Oint...g. 1 APPLIC TP BID, #20.3 GM Prov: Estefanía Fernandez P.AJuan Daniel 05/21/17 Acetaminophen* (TYLENOL EXTRA STRENGTH*) 500 Mg Tablet 500 MG ORAL Q6H, #20 TAB 0 Refills Prov: Estefanía Fernandez P.Yvonne 05/21/17 Doxycycline Hyclate (DOXYCYCLINE HYCLATE) 100 Mg Tablet 100 MG PO BID, #14 TAB Prov: Estefanía Fernandez 05/21/17 Referrals: NON PHYSICIAN (PCP) Patient Instructions: Abscess Additional Instructions: Take medications as directed. Follow up with a Primary Care Provider in 3-5 days, even if your symptoms have resolved. --Please review list of primary care clinics, if you do not already have a primary care provider Return sooner to ED if new symptoms occur, or current symptoms become worse. - Please note that this Emergency Department Report was dictated using [employer] software architect technology software, occasionally this can lead to erroneous entry secondary to interpretation by the dictation equipment. Estefanía Fernandez May 21, 2017 14:10
[2017-05-21] MEDS ORDERED: DOXYCYCLINE HY100 M6 PO (14:12)
[2017-05-21] MEDS ORDERED: BACITRACIN-P28.35 GM TP (14:12)
[2017-05-21] MEDS ORDERED: TYLENOL EXTRA500 MG ORAL (14:12)
[2017-05-21] MEDS ORDERED: Lidocaine 1% MPF 10mg/ml 5ml INJ ONE (14:15)
[2017-05-21 14:30] VITALS: BP 118/80
== END 2017-05-21 14:30 | disposition home or self-care (01) ==
LOC: EMR 13:47
DX: L02.411 Cutaneous abscess of right axilla (principal); J45.909 Unspecified asthma, uncomplicated
CPT/HCPCS: 10060; 99284

== ENCOUNTER 2017-07-30 21:58 | Emergency (ER) | payer SELFPAY ==
[~2017-07-30] VITALS: Ht 172.7 cm; Wt 72.6 kg
[~2017-07-30 21:58] MED LIST changes: +BACITRACIN-P28.35 GM TP; +DOXYCYCLINE HY100 M6 PO; +TYLENOL EXTRA500 MG ORAL
[2017-07-30 22:30] VITALS: BP 128/72
[2017-07-30] MEDS ORDERED: MUPIROCIN22 GM TOPIC (23:15)
--- NOTE | 2017-07-30 23:16 | Emergency Room Report ---
History of Present Illness General Chief Complaint: General Complaint Source: Patient Present Illness HPI Is a 22-year-old male who presents with 2 complaints. First complaining as above in his lower lip. Onset for last few days. No nausea no vomiting. No fever or chills. Does have slight congestion. Second complaint is about to the rectal area. Onset for about a week. No drainage. No pain. Allergies: Coded Allergies: No Known Allergies (Unverified , 01/16/17) Patient History Past Medical History: see triage record, old chart reviewed Past Surgical History: none Pertinent Family History: none Social History: Denies: smoking Immunizations: other Reviewed Nursing Documentation: PMH: Agreed, PSxH: Agreed Nursing Documentation-PMH Hx Asthma: Yes Review of Systems Eye: Denies: eye pain, blurred vision ENT: Denies: ear pain, nose congestion, throat swelling Respiratory: Denies: cough, shortness of breath Cardiovascular: Denies: chest pain, palpitations Gastrointestinal: Denies: abdominal pain, diarrhea, nausea, vomiting Musculoskeletal: Denies: back pain, joint pain Skin: Denies: rash Neurological: Denies: headache, numbness Endocrine: Denies: increased thirst, increased urine Hematologic/Lymphatic: Denies: easy bruising All Other Systems: negative except mentioned in HPI Physical Exam Vital Signs Date Time Temp Pulse Resp B/P (MAP) Pulse Ox O2 Delivery O2 Flow Rate FiO2 07/30/17 22:25 97.9 84 18 128/72 98 Room Air vitals normal Sp02 EP Interpretation: reviewed, normal General Appearance: well appearing, no apparent distress, alert Head: normocephalic, atraumatic Eyes: bilateral eye PERRL, bilateral eye EOMI ENT: hearing grossly normal, normal pharynx, other - Apthous ulcer to the right lower lip Neck: full range of motion, supple, no meningismus Respiratory: chest non-tender, lungs clear, normal breath sounds Cardiovascular #1: regular rate, rhythm, no murmur Gastrointestinal: normal bowel sounds, non tender, no mass, no organomegaly, no bruit, non-distended Rectal: other - 2mm indurated area to right buttock near anus Musculoskeletal: back normal, gait/station normal, normal range of motion Neurologic: alert, oriented x3 Psychiatric: mood/affect normal Skin: warm/dry Medical Decision Making Diagnostic Impression: Primary Impression: Aphthous ulcer Additional Impression: Abscess of buttock, right ER Course Patient with aphthous ulcer. Most likely secondary to viral illness. No evidence of abscess. The abscess on his buttocks is small an indurated. We'll treat with antibiotics. I see no need for I&D. Last Vital Signs Date Time Temp Pulse Resp B/P (MAP) Pulse Ox O2 Delivery O2 Flow Rate FiO2 07/30/17 22:25 97.9 84 18 128/72 98 Room Air Status: unchanged Disposition: HOME, SELF-CARE Condition: Stable Scripts Mupirocin* (MUPIROCIN*) 22 Gm Oint...g. 1 APPLIC TOPIC THREE TIMES A DAY, #22 GM Prov: MIHIR OATES M.D. 07/30/17 Additional Instructions: Followup with your Dr. in 7 days. Return if symptom worsen. MIHIR OATES M.D. Jul 30, 2017 23:16
[2017-07-30 23:20] VITALS: BP 128/72
== END 2017-07-30 23:20 | disposition home or self-care (01) ==
LOC: EMR 23:00
DX: K12.0 Recurrent oral aphthae (principal); L02.31 Cutaneous abscess of buttock; J45.909 Unspecified asthma, uncomplicated
CPT/HCPCS: 99283

== ENCOUNTER 2017-08-09 22:53 | Emergency (ER) | payer SELFPAY ==
[~2017-08-09] VITALS: Ht 172.7 cm; Wt 72.6 kg
[~2017-08-09 22:53] MED LIST changes: +MUPIROCIN22 GM TOPIC
[2017-08-09 23:06] VITALS: BP 120/66
[2017-08-09 23:24] VITALS: BP 120/66
--- NOTE | 2017-08-10 01:35 | Emergency Room Report ---
History of Present Illness General Chief Complaint: General Complaint Source: Patient Present Illness HPI 22-year-old male presents to ED complaining of ulcer to his lip. Has been there on and off for the last month. Was seen here on 1227 for the same pain but states it did not get better. States that a few days ago he did pop the blister. Pain is throbbing, 4/10, nonradiating. Denies any fevers or chills. No other aggravating relieving factors. Denies any other associated symptoms Allergies: Coded Allergies: No Known Allergies (Unverified , 01/16/17) Patient History Past Medical History: asthma Past Surgical History: none Pertinent Family History: none Social History: Denies: smoking, alcohol use, drug use Immunizations: UTD Reviewed Nursing Documentation: PMH: Agreed, PSxH: Agreed Nursing Documentation-PMH Past Medical History: No History, Except For Hx Asthma: Yes Review of Systems All Other Systems: negative except mentioned in HPI Physical Exam Vital Signs Date Time Temp Pulse Resp B/P (MAP) Pulse Ox O2 Delivery O2 Flow Rate FiO2 08/09/17 22:57 98.2 90 16 120/66 99 Room Air Sp02 EP Interpretation: reviewed, normal General Appearance: no apparent distress, alert, GCS 15, non-toxic Head: normocephalic Eyes: bilateral eye normal inspection, bilateral eye PERRL ENT: hearing grossly normal, no angioedema, normal voice, TMs + canals normal, other - solitary vesicle lesion to lower lip. no surrounding induration/erythema Neck: normal inspection Respiratory: normal inspection Cardiovascular #1: normal inspection Gastrointestinal: normal inspection Rectal: deferred Genitourinary: no CVA tenderness Musculoskeletal: normal inspection Neurologic: alert, oriented x3, responsive, motor strength/tone normal, sensory intact, speech normal Psychiatric: normal inspection Skin: normal inspection Lymphatic: normal inspection Medical Decision Making Diagnostic Impression: Primary Impression: Aphthous ulcer ER Course Hospital Course 22 yo M presents to ED with ulcer to his lower lip Differential diagnoses include: Cellulitis, dermatitis, insect bite, abscess Clinical course Patient placed on stretcher. After initial history, physical exam reveals a male in no acute distress. On exam there is a solitary vesicle to the lower lip. consistent with apthous ulcer I explained findings to the patient. Did not require antibiotics. Recommend [id number] topical therapy such as Orajel. Patient is upset stating that he does not understand why it keeps coming back. I explained to patient that if he pops the vesicle it will recur. The average disease course is approximately 10-12 days before complete resolution Diagnosis - apthous ulcer stable and discharged to home. use OTC orajel. do not pop vesicle. Instructed to followup with PMD. Instructed return to ED if symptoms recur or worsen Last Vital Signs Date Time Temp Pulse Resp B/P (MAP) Pulse Ox O2 Delivery O2 Flow Rate FiO2 08/09/17 23:24 98.2 90 16 120/66 99 Room Air Status: improved Disposition: HOME, SELF-CARE Condition: Stable Referrals: NOT CHOSEN IPA/MD,REFERRING (PCP) Patient Instructions: Cold Sore, [id number] Additional Instructions: treat with over the counter orajel from pharmacy NERI RADER M.D. Aug 10, 2017 01:34
== END 2017-08-09 23:24 | disposition home or self-care (01) ==
LOC: EMR 23:12
DX: K12.0 Recurrent oral aphthae (principal); J45.909 Unspecified asthma, uncomplicated
CPT/HCPCS: 99282

== ENCOUNTER 2017-12-29 19:26 | Emergency (ER) | payer MEDICAID ==
[~2017-12-29] VITALS: Ht 172.7 cm; Wt 63.5 kg
[2017-12-29 19:37] VITALS: BP 141/85
[2017-12-29] MEDS ORDERED: CEPHALEXIN500 MG ORAL (20:09)
[2017-12-29 20:16] VITALS: BP 141/85
--- NOTE | 2017-12-29 21:03 | Emergency Room Report ---
History of Present Illness General Chief Complaint: General Complaint Source: Patient Present Illness [facility] The patient is a 22-year-old male presenting for possible facial infection. He noticed a bump on the left side of his face approximately 1 month prior. It is tender to palpation. 5/10 dull ache. Does not radiate. He denies other symptoms including N, V, F, chills, change in vision or hearing Allergies: Coded Allergies: No Known Allergies (Unverified , 01/16/17) Patient History Past Medical History: see triage record Pertinent Family History: none Reviewed Nursing Documentation: PMH: Agreed; PSxH: Agreed Nursing Documentation-PMH Hx Asthma: Yes Review of Systems All Other Systems: negative except mentioned in HPI Physical Exam Vital Signs Date Time Temp Pulse Resp B/P (MAP) Pulse Ox O2 Delivery O2 Flow Rate FiO2 12/29/17 19:28 98.2 70 18 141/85 98 Room Air 98.2 Sp02 EP Interpretation: reviewed, normal General Appearance: no apparent distress, alert, GCS 15, non-toxic Head: normocephalic, atraumatic Eyes: bilateral eye normal inspection, bilateral eye PERRL ENT: hearing grossly normal, normal pharynx, no angioedema, normal voice Neurologic: alert, oriented x3, responsive, motor strength/tone normal, sensory intact, speech normal Psychiatric: judgement/insight normal, memory normal, mood/affect normal, no suicidal/homicidal ideation Skin: normal color, no rash, warm/dry, well hydrated Lymphatic: no adenopathy Medical Decision Making PA Attestation Dr. Alberto is my supervising physician. Patient management was discussed with my supervising physician Diagnostic Impression: Primary Impression: Abscess ER Course The patient is a 22-year-old male presenting for possible facial infection. Differential diagnoses considered but not limited to: abscess, cellulitis, insect bite, among others PE: Afebrile. NAD There is a 1cm indurated lesion to the L face. TTP. Mild erythema. The patient is given prescription for keflex and will be DC'ed. ER precautions given Last Vital Signs Date Time Temp Pulse Resp B/P (MAP) Pulse Ox O2 Delivery O2 Flow Rate FiO2 12/29/17 20:16 98.2 70 18 141/85 98 Room Air 98.2 Status: improved Disposition: HOME, SELF-CARE Condition: Improved Scripts Cephalexin* (KEFLEX*) 500 Mg Capsule 500 MG ORAL EVERY 12 HOURS, #14 CAP 0 Refills Prov: SALBADOR RM 12/29/17 Patient Instructions: Abscess Additional Instructions: I discussed my findings with the patient. All questions and concerns have been answered. Treatment and medication compliance have been addressed. I advised the patient that they need to follow up with PMD in 3-5 days. Return to ED if symptoms worsen, new symptoms arise, or if needed for any reason. Patient verbalized understanding of discharge instructions. SALBADOR RM December 29, 2017 21:03
== END 2017-12-29 20:18 | disposition home or self-care (01) ==
LOC: EMR 19:57
DX: L02.01 Cutaneous abscess of face (principal); J45.909 Unspecified asthma, uncomplicated
CPT/HCPCS: 99283

== ENCOUNTER 2018-08-02 17:11 | Emergency (ER) | payer MEDICAID ==
[~2018-08-02] VITALS: Ht 172.7 cm; Wt 61.2 kg
[~2018-08-02 17:11] MED LIST changes: +CEPHALEXIN500 MG ORAL
--- NOTE | 2018-08-02 18:10 | NUR ---
ED Nurse Note: Patient walked in for suture removal on right index finger. Pt rates pain at 4/10.
--- NOTE | 2018-08-02 18:12 | Emergency Room Report ---
History of Present Illness General Chief Complaint: Wound Recheck/Suture Removal Present Illness HPI 33-year-old male patient presents the ER requesting suture removal from right hand index finger. Reports that 10 days ago he had sutures placed at [facility] after cutting his hand with a knife. Reports has not been taking any antibiotics or using any topical cream. Denies drainage from site of injury. Reports he is left-hand dominant. Denies fever, chest pain, shortness of breath. Denies other acute symptoms. Denies loss of range of motion. Allergies: Coded Allergies: No Known Allergies (Unverified , 01/16/17) Patient History Past Medical History: see triage record Reviewed Nursing Documentation: PMH: Agreed; PSxH: Agreed Nursing Documentation-PMH Hx Asthma: Yes Review of Systems All Other Systems: negative except mentioned in HPI Physical Exam Vital Signs Date Time Temp Pulse Resp B/P (MAP) Pulse Ox O2 Delivery O2 Flow Rate FiO2 08/02/18 18:01 98.4 59 15 122/72 98 Sp02 EP Interpretation: reviewed, normal General Appearance: well appearing, no apparent distress, alert, GCS 15, non- toxic Head: normocephalic, atraumatic Eyes: bilateral eye normal inspection, bilateral eye PERRL ENT: hearing grossly normal, normal pharynx, no angioedema, normal voice, uvula midline, moist mucus membranes Neck: full range of motion Respiratory: lungs clear, normal breath sounds, no rhonchi, no respiratory distress, no accessory muscle use, no wheezing, speaking full sentences Cardiovascular #1: regular rate, rhythm, no edema Cardiovascular #2: 2+ radial (R), 2+ radial (L) Musculoskeletal: back normal, digits/nails normal, gait/station normal, normal range of motion, non-tender Neurologic: alert, oriented x3, responsive, motor strength/tone normal, sensory intact Psychiatric: mood/affect normal Skin: laceration - Healing 2 cm laceration on radial aspect of right index finger, no surrounding erythema or edema, 5 sutures placed Medical Decision Making PA Attestation Dr. Hodge is my supervising Physician whom patient management has been discussed with. Diagnostic Impression: Primary Impression: Encounter for removal of sutures ER Course Pt. presents to the ED requesting wound check and suture removal of right hand index finger. Ddx considered but are not limited to cellulitis, abscess, wound check, folliculitis. No fusiform swelling, no TTP along flexor tendon, no pain wtih extension, finger not held in flexion, low suspicion for flexor tenosynovitis. Vital signs: are WNL, pt. is afebrile Ordered Bacitrain. ER COURSE: Wound has no signs of infection., no erythema, edema, TTP, sensation is intact to light touch. 5 sutures removed. Bacitracin applied to wound. Apply Neosporin to wound to reduce appearance of scar. DISCHARGE: Patient instructed to continue with medications per initial ER provider instructions. At this time pt. is stable for d/c to home. Patient resting comfortably, in no acute distress, nontoxic appearing. Will provide printed patient care instructions and any necessary prescriptions. Care plan and follow up instructions have been discussed with the patient prior to discharge. Patient instructed to follow-up with primary care provider for further treatment and referral. Patient questions asked and answered. ER precautions given. Patient instructed to return to ER immediately for any new or worsening of symptoms including but not limited to fever, worsening of pain symptoms. - Please note that this Emergency Department Report was dictated using [employer] molder technology software, occasionally this can lead to erroneous entry secondary to interpretation by the dictation equipment. Status: improved Disposition: HOME, SELF-CARE Condition: Stable Patient Instructions: Suture Removal, Care After, Sutured Wound Care, Easy-to- Read Additional Instructions: Followup with primary care provider in 3 -5 days. Apply topical Neosporin or bacitracin to cut to prevent infection and reduce appearance of scar. Take medications as directed. Patient questions asked and answered. ER precautions given, patient instructed to return to ER immediately for any new or worsening of symptoms. Sabino Bonilla Aug 02, 2018 18:12
[2018-08-02] MEDS ORDERED: Bacitracin Oint UD TOPIC ONE (18:15)
[2018-08-02 18:22] VITALS: BP 122/72
--- NOTE | 2018-08-02 18:27 | NUR ---
ED Nurse Note: pt dc per ED order, dc education provided. pt verbalized underestanding, id band removed, vss, pt left with all belongings, pt instructed to follow with pmd if symptoms reoccur
[2018-08-02 18:28] VITALS: BP 122/72
== END 2018-08-02 18:28 | disposition home or self-care (01) ==
LOC: EMR 17:44
DX: S61.210D Laceration without foreign body of right index finger without damage to nail, subsequent encounter (principal); X58.XXXD Exposure to other specified factors, subsequent encounter; Z48.02 Encounter for removal of sutures; J45.909 Unspecified asthma, uncomplicated
CPT/HCPCS: 99283